=== PATIENT | female | born 1985 | race American Indian/Alaskan Native ===

== ENCOUNTER 2017-08-31 16:20 | Emergency (ER) | payer OTHER ==
[2017-08-31 16:42] VITALS: BP 112/64
[2017-08-31 18:02] LABS: Bacteria,Urine 1+ /HPF (Negative); Bilirubin,Urine NEG (Negative); Blood,Urine NEG (Negative); Ketones,Urine TR mg/dL (Negative); Leukocyte Esterase,Urine SM (Negative); Mucus,Urine FEW /HPF; Nitrite,Urine NEG (Negative); Protein,Urine <15 mg/dL mg/dL (Negative); Urobilinogen,Urine < 2.0 mg/dL (<2.0)
--- NOTE | 2017-08-31 18:31 | Emergency Department Report ---
ED Female HPI - General Chief complaint: Urogenital-Female Stated complaint: BURNING WITH URINATION Time Seen by Provider: 08/31/17 18:24 Source: patient Mode of arrival: Ambulatory Limitations: No Limitations - History of Present Illness Initial comments: Patient here reports that she is having burning with urination for 2 weeks. She is also complaining of vaginal discharge with foul smelling odor. Patient concern for STD and she is requesting to be tested and treated for STD. Answers yes to practice and unsafe sex. Denies any nausea or vomiting. Denies any abdominal pain. Denies any vaginal bleeding or back pain. Denies any fever or chills. Patient states that she was treated for chlamydia a while back. MD Complaint: vaginal discharge, dysuria, possible STD Onset/Timin -: week(s) Radiation: non-radiating Severity scale (0 -10): 0 Are you Now?: No Associated Symptoms: vaginal discharge, dysuria. denies: vaginal bleeding, abdominal pain, nausea/vomiting, fever/chills, headaches, loss of appetite, hematuria, rash, seizure, shortness of breath, syncope, weakness - Related Data Sexually active: Yes Previous Rx's Medication Instructions Recorded Last Taken Type Nitrofurantoin Monohyd/M-Cryst 100 mg PO Q12H 7 Days #14 capsule 08/31/17 Unknown Rx [Macrobid 100 mg Capsule] metroNIDAZOLE [Flagyl] 500 mg PO Q12HR 7 Days #14 tab 08/31/17 Unknown Rx Allergies Allergy/AdvReac Type Severity Reaction Status Date / Time No Known Allergies Allergy Unverified 08/31/17 16:40 ED Review of Systems ROS: Stated complaint: BURNING WITH URINATION Other details as noted in HPI Comment: All other systems reviewed and negative Constitutional: no symptoms reported ENT: denies: throat pain Respiratory: no symptoms reported Cardiovascular: denies: chest pain, palpitations, dyspnea on exertion, edema, syncope, paroxysmal nocturnal dyspnea Gastrointestinal: denies: abdominal pain, nausea, vomiting, diarrhea, constipation Musculoskeletal: denies: back pain, joint swelling, arthralgia, myalgia Skin: denies: rash Neurological: denies: headache, weakness, numbness, paresthesias, confusion, abnormal gait ED Past Medical Hx - Past Medical History Previous Medical History?: No - Surgical History Past Surgical History?: No - Family History Family history: no significant - Social History Smoking Status: Never Smoker Substance Use Type: None - Medications Home Medications: Home Medications Medication Instructions Recorded Confirmed Last Taken Type Nitrofurantoin Monohyd/M-Cryst 100 mg PO Q12H 7 Days #14 capsule 08/31/17 Unknown Rx [Macrobid 100 mg Capsule] metroNIDAZOLE [Flagyl] 500 mg PO Q12HR 7 Days #14 tab 08/31/17 Unknown Rx ED Physical Exam - General Limitations: No Limitations General appearance: alert, in no apparent distress - Head Head exam: Present: atraumatic, normocephalic, normal inspection - Eye Eye exam: Present: normal appearance, PERRL, EOMI Pupils: Present: normal accommodation - ENT ENT exam: Present: normal exam, normal orophraynx, mucous membranes moist - Neck Neck exam: Present: normal inspection, full ROM. Absent: tenderness, meningismus, lymphadenopathy - Respiratory Respiratory exam: Present: normal lung sounds bilaterally. Absent: respiratory distress, chest wall tenderness, accessory muscle use - Cardiovascular Cardiovascular Exam: Present: regular rate, normal rhythm, normal heart sounds. Absent: systolic murmur, diastolic murmur - GI/Abdominal GI/Abdominal exam: Present: soft, normal bowel sounds. Absent: distended, tenderness, guarding, rebound, rigid, organomegaly, mass, bruit, pulsatile mass - External exam: Present: normal external exam. Absent: erythema, swelling, lesions, lacerations, ecchymosis, bleeding Speculum exam: Present: vaginal discharge, cervical discharge. Absent: normal speculum exam, erythema, vaginal bleeding, foreign body, tissue, laceration Bi-manual exam: Present: normal bi-manual exam - Extremities Exam Extremities exam: Present: normal inspection, full ROM, normal capillary refill , other (no clubbing, cyanosis or edema. +2 pulses in all extremities. No neurovascular compromise.). Absent: tenderness, pedal edema, joint swelling, calf tenderness - Back Exam Back exam: Present: normal inspection, full ROM. Absent: tenderness, CVA tenderness (R), CVA tenderness (L), muscle spasm, paraspinal tenderness, vertebral tenderness, rash noted - Neurological Exam Neurological exam: Present: alert, oriented X3, normal gait - Psychiatric Psychiatric exam: Present: normal affect, normal mood - Skin Skin exam: Present: warm, dry, intact, normal color. Absent: rash ED Course Vital Signs 08/31/17 16:40 Temperature 99.1 F Pulse Rate 84 Respiratory 16 Rate Blood Pressure 112/64 O2 Sat by Pulse 99 Oximetry - Reevaluation(s) Reevaluation #1: 08/31/17 20:06 Patient treated for gonorrhea and chlamydia in emergency room at her request with Rocephin 250 mg IM and azithromycin 1 g by mouth. I discussed patient that her gonorrhea and chlamydia tests will be back within 5 days and if she wants to know results she should bring her ID and come to medical records department at this hospital to get resolved. Patient also positive for bacterial vaginosis per wet prep, negative for trichomoniasis and negative for yeast. ED Medical Decision Making - Lab Data Lab Results 08/31/17 Range/Units 17:14 Urine Color Yellow (Yellow) Urine Turbidity Clear (Clear) Urine pH 5.0 (5.0-7.0) Ur Specific [place] 1.025 (1.003-1.030) Urine Protein <15 mg/dl (Negative) mg/dL Urine Glucose (UA) Neg (Negative) mg/dL Urine Ketones Tr (Negative) mg/dL Urine Blood Neg (Negative) Urine Nitrite Neg (Negative) Urine Bilirubin Neg (Negative) Urine Urobilinogen < 2.0 (<2.0) mg/dL Ur Leukocyte Esterase Sm (Negative) Urine WBC (Auto) 2.0 (0.0-6.0) /HPF Urine RBC (Auto) 1.0 (0.0-6.0) /HPF U Epithel Cells (Auto) 2.0 (0-13.0) /HPF Urine Bacteria (Auto) 1+ (Negative) /HPF Urine Mucus Few /HPF Urine HCG, Qual Negative (Negative) Urine culture pending Wet prep with positive bacterial vaginosis with clue cells greater than 20%, negative Trichomonas and negative yeast. Jose Alberto and chlamydia pending - Medical Decision Making ED course: She presents to emergency room complaining of vaginal discharge that is malodorous and vaginal burning with urination 2 weeks. She's been treated for Chlamydia in the past. She reports that she has sex only with her boyfriend but her boyfriend had given her Chlamydia in the past. She said that her boyfriend is not having any symptoms but she wants to be treated for gonorrhea and chlamydia. Wet prep done and patient positive for bacterial vaginosis. Negative for trichomonas and yeast. Patient urinalysis positive for bladder infection and urine culture sent. Vaginal culture sent for gonorrhea and chlamydia negative told patient that result will be back in 5 days if she wants to find out about her results she needs to return to the emergency room and asked for medical records department. I told her she will need to bring her ID and she can get her results but otherwise she'll be treated for gonorrhea Chlamydia in emergency room today. I also told her that I 'll put her on antibiotic for urinary tract infection and that her trichomonas and yeast test was negative. I expressed the patient that she needs to tell her partner that she was treated for gonorrhea and chlamydia and partner will need to get tested at health department. Patient given Rocephin 250 mg IM and azithromycin 1 g by mouth in emergency room without any adverse reaction. Sensation symmetric encouraged. She discharged home in stable condition with prescription for Macrobid Critical care attestation.: If time is entered above; I have spent that time in minutes in the direct care of this critically ill patient, excluding procedure time. ED Disposition Clinical Impression: Dysuria, Acute cystitis without hematuria, Vaginal discharge, Bacterial vaginosis, Concern about STD in female without diagnosis Disposition: DC-01 TO HOME OR SELFCARE Is pt being admited?: No Does the pt Need Aspirin: No Condition: Stable Instructions: Bacterial Vaginosis (ED), Dysuria (ED), Urinary Tract Infection in Women (ED), Safe Sex (ED), Sexually Transmitted Diseases (ED) Additional Instructions: Please practice safe sex Follow-up with your R[facility]K TE[employer] for repeat testing and if you do not have RISK TECH and he can follow up with health department in 7-10 days. You were treated in the ER today for gonorrhea and chlamydia. Your Trichomonas and yeast was negative. Vaginal swab was positive for bacterial vaginosis and he will be placed on Flagyl to take twice daily for 7 days. You have a urinary tract infection and will be treated with Macrobid for 7 days. Please do not have any sexual activity for the next 2 weeks. test was negative. These do not drink alcohol for the next 7 days as this will interact negatively with medication given for STD. Tell partner know that you're treated for STD and hospital today. increase her fluid intake Take medication as prescribed. You have a urinary tract infection so he'll need to take Macrobid as prescribed. Prescriptions: metroNIDAZOLE [Flagyl] 500 mg PO Q12HR 7 Days #14 tab Nitrofurantoin Monohyd/M-Cryst [Macrobid 100 mg Capsule] 100 mg PO Q12H 7 Days # 14 capsule Referrals: PRIMARY CARE, [Primary Care Provider] - 7-10 days [facility] [Outside] - 7-10 days Forms: STI Treatment and Prevention
[2017-08-31] MEDS ORDERED: ROCEPHIN IM ONE (19:34)
[2017-08-31] MEDS ORDERED: XYLOCAINE 1% MPF 5 mL INFILTRATI ONE (19:34)
[2017-08-31] MEDS ORDERED: ZITHROMAX PO ONE (19:34)
== END 2017-08-31 20:30 | disposition home or self-care (01) ==
LOC: ED 16:20
DX: N30.90 Cystitis, unspecified without hematuria (principal); N76.0 Acute vaginitis
CPT/HCPCS: 81001; 81025; 87086; 87210; 87591; 96372; 99284; J0696